=== PATIENT | female | born 1935 | race Caucasian/White ===

== ENCOUNTER 2020-09-08 12:07 | Emergency (ER) | payer OTHER ==
[2020-09-08] MEDS ORDERED: ACETAMINOPHEN 1000 MG/100 ML VIAL (NON FORMULARY) IVPB ONE (12:29)
[2020-09-08] MEDS ORDERED: FAMOTIDINE 20 MG/50 ML IVPB 20 MG/50 ML MG IVPB ONE ×2 (12:29→12:48)
--- OUTSIDE RECORDS SUMMARY | 2020-09-08 12:32 | XMS ---
:1935 Author Organization [facility] Support Name Relationship Address Phone RE Unavailable Unavailable Unavailable SUZI SHEEHAN [phone] [place] [address] Re-disclosure Warning The records that you are about to access may contain information from federally- assisted alcohol or drug abuse programs. If such information is present, then the following federally mandated warning applies: This information has been disclosed to you from records protected by federal confidentiality rules (42 CFR part 2). The federal rules prohibit you from making any further disclosure of this information unless further disclosure is expressly permitted by the written consent of the person to whom it pertains or as otherwise permitted by 42 CFR part 2. A general authorization for the release of medical or other information is NOT sufficient for this purpose. The Federal rules restrict any use of the information to criminally investigate or prosecute any alcohol or drug abuse patient.The records that you are about to access may contain highly sensitive health information, the redisclosure of which is protected by Article 27-F of the [facility] Public Health law. If you continue you may haveaccess to information: Regarding HIV / AIDS; Provided by facilities licensed or operated by the [facility] Office of Mental Health; or Provided by the [facility] Office for People With Developmental Disabilities. If such information is present, then the following [facility] mandated warning applies: This information has been disclosed to you from confidential records which are protected by state law. State law prohibits you from making any further disclosure of this information without the specific written consent of the person to whom it pertains, or as otherwise permitted by law. Any unauthorized further disclosure in violation of state law may result in a fine or care home sentence or both. A general authorization for the release of medical or other information is NOT sufficient authorization for further disclosure. Insurance Providers Payer name Policy type Policy ID Covered Covered constitution party's Policy P mayo / Coverage constitution party ID relationship to Nathan [employer] ormation type nathan [place] [id number] HEALTHCARE (MEDICARE)
[2020-09-08 12:35] VITALS: TEMP 97.8; BMI 20.3
[2020-09-08] MEDS ORDERED: ACETAMINOPHEN INJECTION 100 ML IVPB ONE (12:48)
--- NOTE | 2020-09-08 12:52 | PDOC ---
History of Present Illness - General Chief Complaint: Chest Pain Stated Complaint: CHEST PAIN Time Seen by Provider: 09/08/20 12:12 History Source: Patient Exam Limitations: No Limitations - History of Present Illness Initial Comments: 09/08/20 12:49 84y F with PMH of Polymyalgia Rheumatica presenting to the ER via EMS for sudden onset of chest pain that began 1 hour prior to arrival. 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 When she went to stand up, she felt a pain in the middle of the chest and called EMS. Pain is substernal, does not radiate. Denies SOB, n/v, headache, cough, congestion, abdominal pain, fevers/chills, lightheadedness. Has not had this kind of pain in the past. Denies leg swelling, orthopnea, recent travel or illnesses. Was given ASA by EMS which helped the pain although she still feels an ache. PMD: [place] PMH: see hpi PSH: none Meds: none Allergies: nkda Social: denies Past History - Medical History Allergies/Adverse Reactions: Allergies Allergy/AdvReac Type Severity Reaction Status Date / Time No Known Allergies Allergy Verified 09/08/20 12:36 Home Medications: Ambulatory Orders NK [No Known Home Medication] 09/08/20 COPD: No Other medical history: POLYMYALGIA RHEUMATICA, GOUT - Reproductive History Is Patient Now?: No - Psycho-Social/Smoking History Smoking History: Never smoked - Substance Abuse Hx (Audit-C & DAST Scrn) How often the patient has a drink containing alcohol: 4 0r more times/wk Number of drinks the patient has on a typical day: 1 or 2 How often the patient has six or more drinks on one occasion: Never Score: In Men: 4 or > Positive; In Women: 3 or > Positive: 4 Screen Result (Pos requires Nsg. Audit-10AR): Positive In the last yr the pt used illegal drug/Rx for NonMed reason: No Score: Yes response is considered Positive: 0 Screen Result (Positive result requires Nsg. DAST-10): Negative Review of Systems - Review of Systems Constitutional: No: Symptoms Reported HEENTM: No: Symptoms Reported Respiratory: No: Symptoms reported Cardiac (ROS): Yes: See HPI ABD/GI: No: Symptoms Reported : No: Symptoms Reported Musculoskeletal: No: Symptoms Reported Integumentary: No: Symptoms Reported Neurological: No: Symptoms reported *Physical Exam - Vital Signs Last Vital Signs Temp Pulse Resp BP Pulse Ox 97.8 F 75 16 156/77 98 09/08/20 12:08 09/08/20 15:00 09/08/20 15:00 09/08/20 15:00 09/08/20 15:00 - Physical Exam General Appearance: Yes: Nourished, Appropriately Dressed. No: Apparent Dis tress HEENT: positive: EOMI, ANGY Neck: positive: Trachea midline. negative: Tender, Decreased range of motion Respiratory/Chest: positive: Chest Tender (mild sternal chest wall tenderness), Lungs Clear, Normal Breath Sounds. negative: Respiratory Distress, Accessory Muscle Use, Labored Respiration, Rapid RR, Crackles, Rales, Rhonchi, Stridor, Wheezing Cardiovascular: positive: Regular Rhythm, Regular Rate, S1, S2. negative: Edema, JVD, Murmur Vascular Pulses: Dorsalis-Pedis (R): 2+, Doralis-Pedis (L): 2+ Gastrointestinal/Abdominal: positive: Normal Bowel Sounds, Soft. negative: Tender, Guarding, Rebound Musculoskeletal: negative: CVA Tenderness, Decreased Range of Motion Extremity: positive: Normal Capillary Refill. 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 NML intact, Fully Oriented, Alert, Normal Mood/Affect, Normal Response, Motor Strength 5/5 ED Treatment Course - LABORATORY CBC & Chemistry Diagram: 09/08/20 12:35 09/08/20 12:35 - ADDITIONAL ORDERS Additional order review: Laboratory Results 09/08/20 09/08/20 09/08/20 15:36 12:35 12:35 Sodium 131 L Potassium 3.6 Chloride 100 Carbon Dioxide 21 Anion Gap 10 BUN 21.0 H Creatinine 0.6 Est GFR (CKD-EPI)AfAm 98.38 Est GFR (CKD-EPI)NonAf 84.88 Random Glucose 102 Calcium 8.6 Total Bilirubin 1.0 AST 20 ALT 15 Alkaline Phosphatase 51 Creatine Kinase 68 Troponin I < 0.03 < 0.03 Total Protein 6.8 Albumin 3.9 09/08/20 12:35 RBC 4.10 MCV 90.0 MCHC 33.1 RDW 17.7 H D MPV 7.4 L Neutrophils % 73.1 Lymphocytes % 14.0 Monocytes % 8.9 Eosinophils % 2.0 Basophils % 2.0 - Medications Given in the ED: ED Medications Discontinued Medications Generic Name Dose Route Start Last Admin Trade Name Roberto PRN Reason Stop Dose Admin Acetaminophen 1,000 mg 09/08/20 12:29 09/08/20 12:50 Ofirmev Injection - IVPB 09/08/20 12:30 1,000 mg ONCE ONE Administration Famotidine/Sodium Chloride 20 mg in 50 mls @ 100 mls/hr 09/08/20 12:29 09/08/20 13:01 Pepcid 20 Mg Premixed Ivpb - IVPB 09/08/20 12:58 100 mls/hr ONCE ONE Administration Medical Decision Making - Medical Decision Making 09/08/20 12:57 84y F with pmh of pmr presenting to the ER for sudden onset chest pain that started with change in position. ems unable to perform ekg but gave pt ASA. pain has improved per pt. no other associated symptoms. vitals: hypertensive otherwise wnl. pe: reproducible cp on attending exam, pt had received medications prior to my examination. otherwise normal exam. ddx includes msk, costochondritis, acs. lower suspicion for dissection, pe, pna, ptx, gerd/gastritis, pancreatitis. ekg: nsr at 74bpm.. no alana or depressions. no twi. no signs of acute ischemia. labs: cardiac labs, cbc, cmp cxr: no acute chest pathology. -ofirmev, pepcid. likely msk with history and exam findings. will send two troponins and reassess. 09/08/20 13:32 na 131 labs otherwise wnl. negative troponin. will draw second set. 09/08/20 14:22 Pt states she is feeling "99.99% better". Informed pt of lab results and plan. second set to be drawn in 45 minutes. 09/08/20 16:43 2nd trop negative. discussed lab results, xray results and ecg with patient. discussed diagnosis of msk pain. advised to f/u with pmd which she has an appointment in 2 weeks. given referrals to cardiology as well. return precautions provided. pt does not have pain, normal ecg, negative troponin, story suspicious for msk pain which resolved with medications. will dc home. pt agrees with plan. Discharge - Discharge Information Problems reviewed: Yes Clinical Impression/Diagnosis: Chest pain Qualifiers: Chest pain type: unspecified Qualified Code(s): R07.9 - Chest pain, unspecified Condition: Improved Disposition: HOME - Admission No - Follow up/Referral Referrals: Mimi Leonard MD [Primary Care Provider] - Blayne Soares MD [Staff Physician] - Inder Cox MD [Staff Physician] - Hawa Ferraro MD [Staff Physician] - Emery Rodriguez MD [Staff Physician] - Ryan Huddleston MD [Staff Physician] - Montrell Baird MD [Staff Physician] - Juan Doherty MD [Staff Physician] - - Patient Discharge Instructions Patient Printed Discharge Instructions: DI for Atypical Chest Pain Additional Instructions: You were seen in the ER for chest pain. The blood tests, xray and ECG are normal. The cause of your pain is likely due to the muscles of the chest wall. You can take Tylenol for the pain as needed. 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 Referrals have been provided below. Come back to the ER if you have worsening chest pain, have difficulty breathing, if you pass out, if you are vomiting or if any new or concerning symptom develops. Thank you - Post Discharge Activity
[2020-09-08 13:10] LABS: HEMATOCRIT 36.9 % (32.4-45.2); HEMOGLOBIN 12.2 GM/dl (10.7-15.3); MCH 29.8 pg (25.7-33.7); MCHC 33.1 g/dl (32.0-36.0); MEAN PLT VOLUME 7.4 fl (7.5-11.1); MONO % 8.9 % (3.8-10.2); NEUT % 73.1 % (42.8-82.8); PLATELET COUNT 345 K/MM3 (134-434); RDW 17.7 % (11.6-15.6); WHITE BLOOD COUNT 8.6 K/mm3 (4.0-10.8)
[2020-09-08 13:16] LABS: ALBUMIN 3.9 g/dl (3.4-5.0); CALCIUM 8.6 mg/dl (8.5-10); CREATININE 0.6 mg/dl (0.55-1.3); POTASSIUM 3.6 mmol/L (3.5-5.1); TOT PROT 6.8 g/dl (6.4-8.2)
--- NOTE | 2020-09-08 15:16 | PDOC ---
Attending Attestation - Resident Resident Name: Kylie Rivero - ED Attending Attestation I have performed the following: I have examined & evaluated the patient, The case was reviewed & discussed with the resident, I agree w/resident's findings & plan, Exceptions are as noted - HPI HPI: 09/08/20 15:15 84 years old no significant past medical history except polymyalgia rheumatica presents to the ED with sudden onset chest pain while being seated in an awkward position bent over while talking on a long phone conversation. Pain is positional substernal reproducible pressure-like not ripping tearing nonradiating no associated dizziness nausea lightheadedness no radiation to neck back or arm. - Physicial Exam PE: 09/08/20 15:15 Vitals: Triage Vital signs reviewed General Appearance: No acute distress, well nourished well developed, Head: Atraumatic, Chest wall: Reproducible chest wall tenderness to palpation sternum Cardiac: Regular rate and rhythym, no murmurs, no rubs, no gallops, Lungs: Clear to auscultation bilateral, good air movement bilaterally, Abdomen: Soft, non distended, normal bowel sounds, non tender to palpation Extremities: Full range of motion to all extremities, no cyanosis, clubbing, or edema Skin: Warm and dry, no rashes or lesions, no rash, no petechiae Neuro: AOX3; cranial Nerves 2-12 grossly intact, strength intact to all extremities, sensation intact to all extremities, gait normal Psych: Normal mood, normal affect - Medical Decision Making 09/08/20 15:[address] elevations or T wave inversions. Reproducible chest pain on examination patient states when sternum palpated that is her exact pain. Nonischemic EKG first troponin negative no cardiac risk factors. Will check second troponin observe and reassess Reevaluation patient is completely pain-free Likely musculoskeletal in nature will reevaluate after second troponin. Heart Score/ECG Review - History History: Slightly suspicious - Electrocardiogram EKG: Normal - Age Age: >/= 65 - Risk Factors Based on the list above the patient has:: No risk factors known - Troponin Troponin: </= normal limit - Score Heart Score - Total: 2 Discharge - Discharge Information Problems reviewed: Yes Clinical Impression/Diagnosis: Chest pain Qualifiers: Chest pain type: unspecified Qualified Code(s): R07.9 - Chest pain, unspecified Condition: Improved Disposition: HOME - Follow up/Referral Referrals: Mimi Leonard MD [Primary Care Provider] - - Patient Discharge Instructions Patient Printed Discharge Instructions: DI for Atypical Chest Pain Additional Instructions: You were seen in the ER for chest pain. The blood tests, xray and ECG are normal. The cause of your pain is likely due to the muscles of the chest wall. You can take Tylenol for the pain as needed. 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 Referrals have been provided below. Come back to the ER if you have worsening chest pain, have difficulty breathing, if you pass out, if you are vomiting or if any new or concerning symptom develops. Thank you - Post Discharge Activity
[2020-09-08 15:46] VITALS: BP 156/77; PULSE 75
--- NOTE | 2020-09-11 16:14 | EKG ---
Test Reason : Blood Pressure : / mmHG Vent. Rate : 074 BPM Atrial Rate : 074 BPM P-R Int : 194 ms QRS Dur : 072 ms QT Int : 394 ms P-R-T Axes : 082 -09 037 degrees QTc Int : 437 ms NORMAL SINUS RHYTHM NORMAL ECG NO PREVIOUS ECGS AVAILABLE Confirmed by VI GONSALVES MD ([id number]) on 09/11/2020 4:14:37 PM Referred By: Confirmed By:VI GONSALVES MD
== END 2020-09-08 16:59 | disposition home or self-care (01) ==
LOC: FER 12:07 → SUPCPDRO 12:07 → FER 16:59
PROC: 3E0333Z Introduction of Anti-inflammatory into Peripheral Vein, Percutaneous Approach (ICD-10-PCS; principal; 2020-09-08)
PROC: 3E033GC Introduction of Other Therapeutic Substance into Peripheral Vein, Percutaneous Approach (ICD-10-PCS; 2020-09-08)
DX: R07.9 Chest pain, unspecified (principal)
CPT/HCPCS: 36415; 71045-TC-FY; 80053; 82550; 84484; 85025; 93005; 99285-25; J0131

== ENCOUNTER 2023-08-06 11:12 | Emergency (ER) | payer OTHER ==
[2023-08-06 11:41] VITALS: BP 151/81; PULSE 97; RESP 18; TEMP 99.3; BMI 21.2
[2023-08-06] MEDS ORDERED: ALBUTEROL SO4 0.083% IH SOL 2.5 MG/3 ML VIAL.NEB. NEB ONE (12:29)
[2023-08-06] MEDS ORDERED: ALBUTEROL SO4 HFA INHALER IH ONE ×2 (12:32→12:35)
[2023-08-06 13:08] LABS: EPITHELIAL CELLS MODERATE /hpf
== END 2023-08-06 13:38 | disposition home or self-care (01) ==
LOC: FER 11:12
PROC: 3E0F7GC Introduction of Other Therapeutic Substance into Respiratory Tract, Via Natural or Artificial Opening (ICD-10-PCS; principal; 2023-08-06)
DX: R05.9 Cough, unspecified (principal); M79.10 Myalgia, unspecified site; B34.9 Viral infection, unspecified; R22.43 Localized swelling, mass and lump, lower limb, bilateral; Z20.822 Contact with and (suspected) exposure to COVID-19
CPT/HCPCS: 0241U-QW; 71045-TC-FY; 81003; 81015; 87086; 99284-25

== ENCOUNTER 2023-11-28 06:06 | Day surgery (SDC) | payer OTHER ==
[2023-11-21 08:47] VITALS: BMI 18.8
[2023-11-28] MEDS ORDERED: BUPIVACAINE HCL/PF 2.5 MG/ML - 30 ML VIAL IJ ONE ×2 (07:22→08:04)
[2023-11-28] MEDS ORDERED: MIDAZOLAM HCL 2 MG/2 ML SINGLE DOSE VIAL ONE (07:35)
[2023-11-28] MEDS ORDERED: ONDANSETRON 4 MG/2 ML VIAL IVPUSH PRN (07:40)
[2023-11-28] MEDS ORDERED: LIDOCAINE 1%/EPI 1:100000 (50 ML MULTI DOSE VIAL) ONE (07:43)
[2023-11-28] MEDS ORDERED: LACTATED RINGERS SOLUTION 1,000 ML IV SCH (07:45)
[2023-11-28] MEDS ORDERED: PROPOFOL 20 ML ONE (07:57)
[2023-11-28] MEDS ORDERED: DEXAMETHASONE SOD PHOSPHATE 4 MG/1 ML VIAL ONE (07:58)
[2023-11-28] MEDS ORDERED: ONDANSETRON 4 MG/2 ML VIAL ONE (07:58)
[2023-11-28] MEDS ORDERED: ceFAZolin SODIUM 1 GM VIAL ONE (07:58)
[2023-11-28] MEDS ORDERED: LIDOCAINE 1%/EPI 1:100000 (50 ML MULTI DOSE VIAL) NR ONE (08:04)
[2023-11-28 08:53] VITALS: RESP 16
[2023-11-28 09:50] VITALS: BP 175/85; PULSE 79; TEMP 97
== END 2023-11-28 10:00 | disposition home or self-care (01) ==
LOC: FASU 06:06
PROVIDERS: ATTEND Surgery
PROC: 0JB70ZZ Excision of Back Subcutaneous Tissue and Fascia, Open Approach (ICD-10-PCS; principal; 2023-11-28 08:05)
DX: D17.1 Benign lipomatous neoplasm of skin and subcutaneous tissue of trunk (principal)
CPT/HCPCS: 88305-TC; 94760

== ENCOUNTER 2024-06-08 14:39 | Emergency (ER) | payer OTHER ==
[2024-06-08 15:21] VITALS: BP 165/81; PULSE 86; RESP 20; TEMP 98; BMI 18.4
[2024-06-08] MEDS: APIXABAN 5 MG TABLET PO ONE (15:48)
[2024-06-08] MEDS ORDERED: APIXABAN 5 MG TABLET PO ONE (15:49)
[2024-06-08] MEDS ORDERED: APIXABAN 5 MG TABLET PO SCH (22:00)
== END 2024-06-08 15:56 | disposition home or self-care (01) ==
LOC: FER 14:39
DX: I82.412 Acute embolism and thrombosis of left femoral vein (principal); R60.0 Localized edema
CPT/HCPCS: 99283-25

== ENCOUNTER 2024-08-17 10:24 | Emergency (ER) | payer OTHER ==
[2024-08-17 10:39] VITALS: BP 161/86; PULSE 88; RESP 16; TEMP 97.5
== END 2024-08-17 11:10 | disposition home or self-care (01) ==
LOC: FER 10:24
DX: H11.32 Conjunctival hemorrhage, left eye (principal)
CPT/HCPCS: 99283-25